=== PATIENT | female | born 1950 | race Caucasian/White ===

== ENCOUNTER → 2017-01-09 | Outpatient (CLI) | payer MEDICARE ==
--- NOTE | 2017-01-09 15:45 | PCVCIMAG ---
APPROVED REPORT Study performed: 01/09/2017 14:19:16 EXAM: Comprehensive 2D, Doppler, and color-flow Echocardiogram Patient Location: Echo lab Status: routine Other Information Study Quality: AdequateTechnically Limited Indications Hypertension, Hyperlipidemia. 2D Dimensions IVSd: 16.94 (7-11mm)LVOT Diam: 20.95 (18-24mm) LVDd: 47.06 mm LVPWs: 35.08 mm PWd: 13.88 (7-11mm)Ascending Ao: 35.92 (22-36mm) LVDs: 36.74 (25-40mm) Aortic Root: 34.57 mm LV Single Plane 4CH: 59.46 % LV Single Plane 2CH: 63.38 %Kang's LVEF: 61.42 % Biplane EF: 59.5 % Volumes Left Atrial Volume (Systole) Single Plane 4CH: 58.29 mLSingle Plane 2CH: 41.75 mL LA ESV Index: 26.00 mL/m2 Aortic Valve AoV Peak Fernando.: 1.81 m/s AO Peak Gr.: 13.05 mmHgLVOT Max P.28 mmHg LVOT Max V: 1.35 m/s AMELIA Vmax: 2.57 cm2 AI Vmax: 5.31 m/s AI [place]: 2.63 m/s2 AI PHT: 585.58 ms Mitral Valve E/A Ratio: 108.0 MV E Max Fernando.: 1.08 m/s MV A Fernando.: 0.01 m/s IVRT: 131.49 ms Pulmonary Vein P Vein S: 0.76 m/sP Vein A: 0.25 m/s P Vein D: 0.59 m/sP Vein A Dur.: 69.2 msec P Vein S/D Ratio: 1.29 Left Ventricle The left ventricle is normal size. There is normal LV segmental wall motion. There is normal left ventricular wall thickness. Left ventricular systolic function is normal. The left ventricular ejection fraction is within the normal range. LVEF is 55-60%. The left ventricular diastolic function is normal. Right Ventricle The right ventricle is normal size. The right ventricular systolic function is normal. Atria The left atrium size is normal. The right atrium size is normal. Aortic Valve The aortic valve is normal in structure. Mild aortic regurgitation. There is no aortic valvular stenosis. Mitral Valve The mitral valve is normal in structure. There is no mitral valve regurgitation noted. No evidence of mitral valve stenosis. Tricuspid Valve The tricuspid valve is normal in structure. There is no tricuspid valve regurgitation noted. Pulmonic Valve The pulmonary valve is normal in structure. There is no pulmonic valvular regurgitation. Great Vessels The aortic root is normal in size. IVC is normal in size and collapses with >50% inspiration Pericardium There is no pericardial effusion. <Conclusion> The left ventricle is normal size. Left ventricular systolic function is normal. The left ventricular ejection fraction is within the normal range. LVEF is 55-60%. The aortic valve is normal in structure. Mild aortic regurgitation. The mitral valve is normal in structure. The tricuspid valve is normal in structure. The pulmonary valve is normal in structure.
== END | disposition home or self-care (01) ==
LOC: PCVCIMAG 13:38
PROVIDERS: ATTEND Internal Medicine
DX: Z01.810 Encounter for preprocedural cardiovascular examination (principal); R94.31 Abnormal electrocardiogram [ECG] [EKG]; I10 Essential (primary) hypertension; E78.5 Hyperlipidemia, unspecified; I35.1 Nonrheumatic aortic (valve) insufficiency
CPT/HCPCS: 93306

== ENCOUNTER → 2017-10-31 | Outpatient (CLI) | payer MEDICARE | END | disposition home or self-care (01) | LOC: PCVCCLINIC 15:18 | DX: I10 Essential (primary) hypertension (principal); I27.20 Pulmonary hypertension, unspecified; R60.0 Localized edema; R00.2 Palpitations; R94.31 Abnormal electrocardiogram [ECG] [EKG]; E78.00 Pure hypercholesterolemia, unspecified; Z82.49 Family history of ischemic heart disease and other diseases of the circulatory system; Z79.899 Other long term (current) drug therapy; Z87.891 Personal history of nicotine dependence | CPT/HCPCS: 80061; 93005; G0463 ==

== ENCOUNTER → 2017-11-18 | Outpatient (CLI) | payer MEDICARE | END | disposition home or self-care (01) | LOC: PCVCCLINIC 14:49 | DX: I10 Essential (primary) hypertension (principal); R60.0 Localized edema; I95.1 Orthostatic hypotension; Z88.8 Allergy status to other drugs, medicaments and biological substances; Z79.899 Other long term (current) drug therapy; Z87.891 Personal history of nicotine dependence; Z88.0 Allergy status to penicillin | CPT/HCPCS: G0463 ==

== ENCOUNTER → 2018-02-12 | Outpatient (CLI) | payer MEDICARE ==
--- NOTE | 2018-02-12 15:50 | PCVCIMAG ---
APPROVED REPORT Study performed: 02/12/2018 14:18:08 EXAM: Comprehensive 2D, Doppler, and color-flow Echocardiogram Patient Location: Echo lab Status: routine BSA: 2.11 HR: 58 bpmBP: 132/72 mmHg Rhythm: NSR Other Information Study Quality: Adequate Risk Factors: Cardiac Risk Factors: HTN Indications LE Edema 2D Dimensions LVEF(%): 62.00 (>50%) IVSd: 15.23 (7-11mm)LVOT Diam: 20.00 (18-24mm) LVDd: 46.79 mm PWd: 14.21 (7-11mm)Ascending Ao: 36.15 (22-36mm) LVDs: 27.87 (25-40mm) Left Atrium: 39.95 (27-40mm) Aortic Root: 33.00 mm LV Single Plane 4CH: 57.79 % LV Single Plane 2CH: 62.32 %Kang's LVEF: 60.06 % Biplane EF: 59.3 % Volumes Left Atrial Volume (Systole) Single Plane 4CH: 57.43 mLSingle Plane 2CH: 55.17 mL LA ESV Index: 28.00 mL/m2 Aortic Valve AoV Peak Fernando.: 1.96 m/s AO Peak Gr.: 15.36 mmHgLVOT Max P.94 mmHg LVOT Max V: 1.11 m/s AMELIA Vmax: 1.74 cm2 AI Vmax: 4.44 m/s AI [place]: 1.30 m/s2 AI PHT: 994.47 ms Mitral Valve E/A Ratio: 1.3 MV Decel. Time: 339.39 ms MV E Max Fernando.: 1.31 m/s MV A Fernando.: 1.04 m/s IVRT: 64.59 ms TDI E/Lateral E': 18.71E/Medial E': 32.75 Medial E' Fernando.: 0.04 m/s Lateral E' Fernando.: 0.07 m/s Pulmonary Valve PV Peak Fernando.: 1.27 m/sPV Peak Gr.: 6.42 mmHg Pulmonary Vein P Vein S: 0.71 m/sP Vein A: 0.25 m/s P Vein D: 0.71 m/sP Vein A Dur.: 106.1 msec P Vein S/D Ratio: 1.00 Tricuspid Valve RAP Estimate: 7.00 mmHg Left Ventricle The left ventricle is normal size. There is normal LV segmental wall motion. Moderate concentric left ventricular hypertrophy. Left ventricular systolic function is normal. The left ventricular ejection fraction is within the normal range. LVEF is 60-65%. The left ventricular diastolic function is normal. Right Ventricle The right ventricle is normal size. The right ventricular systolic function is normal. Atria The left atrium size is normal. The right atrium size is normal. Aortic Valve The aortic valve is normal in structure. Mild to moderate aortic regurgitation. There is no aortic valvular stenosis. Mitral Valve There is mitral annular calcification. There is no mitral valve regurgitation noted. No evidence of mitral valve stenosis. Tricuspid Valve The tricuspid valve is normal in structure. There is no tricuspid valve regurgitation noted. Pulmonic Valve The pulmonary valve is normal in structure. There is no pulmonic valvular regurgitation. Great Vessels The aortic root is normal in size. IVC is normal in size and collapses >50% with inspiration. Pericardium There is no pericardial effusion. <Conclusion> The left ventricle is normal size. LVEF is 60-65%. The aortic valve is normal in structure. Mild to moderate aortic regurgitation. There is mitral annular calcification. The tricuspid valve is normal in structure. The pulmonary valve is normal in structure. There is no pericardial effusion.
== END | disposition home or self-care (01) ==
LOC: PCVCIMAG 15:19
PROVIDERS: ATTEND Internal Medicine
DX: I08.0 Rheumatic disorders of both mitral and aortic valves (principal); I10 Essential (primary) hypertension; R60.9 Edema, unspecified
CPT/HCPCS: 93306

== ENCOUNTER → 2019-01-12 | Outpatient (CLI) | payer MEDICARE | END | disposition home or self-care (01) | LOC: PCVCCLINIC 15:00 | PROVIDERS: ATTEND Internal Medicine | DX: I11.0 Hypertensive heart disease with heart failure (principal); I50.30 Unspecified diastolic (congestive) heart failure; I27.20 Pulmonary hypertension, unspecified; I95.1 Orthostatic hypotension; Z88.8 Allergy status to other drugs, medicaments and biological substances; Z88.2 Allergy status to sulfonamides; Z88.0 Allergy status to penicillin | CPT/HCPCS: 36415; 85610 ==